=== PATIENT | male | born 1955 | race Asian ===

== ENCOUNTER 2019-11-12 15:48 | Emergency (ER) | payer MEDICAID ==
[~2019-11-12] VITALS: Ht 170.2 cm; Wt 61.8 kg
[2019-11-12 16:23] VITALS: BP 148/107
--- NOTE | 2019-11-12 17:05 | NUR ---
Patient & Caregiver given discharge instructions and Rx, they have confirmed that they understand the instructions. Patient ambulatory with steady gait.
== END 2019-11-12 17:07 | disposition home or self-care (01) ==
LOC: ED 16:28
DX: I10 Essential (primary) hypertension (principal); E11.9 Type 2 diabetes mellitus without complications; H54.413A Blindness right eye category 3, normal vision left eye; Z76.0 Encounter for issue of repeat prescription
CPT/HCPCS: 82962; 99281; 99283

== ENCOUNTER 2020-01-16 13:09 | Emergency (ER) | payer MEDICAID, OTHER ==
[~2020-01-16] VITALS: Ht 172.7 cm; Wt 60.8 kg
--- NOTE | 2020-01-16 15:07 | NUR ---
BREAK RN: ASSUMED CARE OF PATIENT WHILE PRIMARY RN IS ON BREAK. PT REPORTS HE WAS RECENTLY SEEN AT [facility] AND TOLD HE NEEDED A CARDIAC US. PT MADE AN APPOINTMENT BUT MISSED IT DUE TO A FEVER. HIS US WAS RESCHEDULED, BUT PT IS WORRIED IT IS TOO FAR AWAY. PT REPORTS HE NEEDS A PERCH MENDER AND PRIMARY DOCTOR. PT ALSO C/O SOB. VS STABLE. MOLD FINISHER ON. NSR NOTED. AT BEDSIDE. CALL LIGHT IN PLACE.
--- NOTE | 2020-01-16 15:26 | NUR ---
REPORT GIVEN TO KAREN SALAMANCA
[2020-01-16 16:01] LABS: BASOPHILS % (AUTO) 1 % (0-1); EOSINOPHILS % (AUTO) 3 % (1-7); LYMPHOCYTES % (AUTO) 30 % (22-44); MEAN CORPUSCULAR HEMOGLOBIN 31.2 pg (27.5-34.5); MEAN CORPUSCULAR HGB CONC 34.1 g/dL (33.2-36.2); MEAN PLATELET VOLUME 8.4 fL (7.4-10.4); MONOCYTES % (AUTO) 7 % (2-9); NEUTROPHILS % (AUTO) 59 % (42-75); PLATELET COUNT 265 x10^3/uL (130-400); RED BLOOD COUNT 4.68 x10^6/uL (4.38-5.82); RED CELL DISTRIBUTION WIDTH 13.2 % (9.4-14.8)
[2020-01-16 16:06] LABS: ALANINE AMINOTRANSFERASE 38 U/L (12-78); ALBUMIN 3.5 g/dL (3.4-5.0); ANION GAP 5 mmol/L (5-15); CALCIUM 8.7 mg/dL (8.5-10.1); CHLORIDE 102 mmol/L (98-107); CREATININE 1.17 mg/dL (0.7-1.3)
[2020-01-16 16:08] LABS: MD NO
[2020-01-16 16:10] LABS: ALKALINE PHOSPHATASE 83 U/L (45-117); BILIRUBIN,TOTAL 0.7 mg/dL (0.2-1.0); TROPONIN I 0.023 ng/mL (0.000-0.045)
[2020-01-16 17:22] VITALS: BP 149/78
== END 2020-01-16 18:41 | disposition home or self-care (01) ==
LOC: ED 18:25
DX: R06.00 Dyspnea, unspecified (principal); F41.1 Generalized anxiety disorder; I45.10 Unspecified right bundle-branch block; I49.3 Ventricular premature depolarization; I10 Essential (primary) hypertension; E11.9 Type 2 diabetes mellitus without complications
CPT/HCPCS: 36415; 71045; 80053; 83880; 84484; 85025; 93005; 99285